=== PATIENT | female | born 1970 | race Caucasian/White ===

== ENCOUNTER 2018-11-15 09:33 | Emergency (ER) | payer OTHER ==
--- NOTE | 2018-11-16 07:37 | UC ---
Course/Dx - Diagnoses Provider Diagnoses: Patient left without being seen Discharge - Sign-Out/Discharge Documenting (check all that apply): Post-Discharge Follow Up All imaging exams completed and their final reports reviewed: No Studies - Discharge Plan Condition: Stable Disposition: LEFT WITHOUT BEING SEEN Referrals: Lloyd Cortez MD [Primary Care Provider] - - Billing Disposition and Condition Condition: STABLE Disposition: Left Without Being Seen
== END 2018-11-15 10:27 | disposition left against medical advice (07) ==
LOC: UCEAST 09:33
DX: Z53.21 Procedure and treatment not carried out due to patient leaving prior to being seen by health care provider (principal)

== ENCOUNTER 2018-11-22 07:55 | Emergency (ER) | payer OTHER ==
[2018-11-22 08:06] VITALS: BP 120/69
--- NOTE | 2018-11-22 08:28 | UC ---
Respiratory Complaint HPI - HPI Summary HPI Summary: 1 WEEK OF SINUS PRESSURE, NASAL CONGESTION AND MILD COUGH. HAD FEVER INITIALLY BUT NONE NOW. THOUGHT SHE WAS GETTING BETTER BUT THEN YESTERDAY STARTED FEELING WORSE AGAIN. DEVELOPED HEADACHE AND SOME MILD PHOTOPHOBIA. DOES HAVE A HISTORY OF MIGRAINES BUT STATES THIS FEELS SLIGHTLY DIFFERENT. SHE BELIEVES IT IS MORE RELATED TO HER SINUSES. - History of Current Complaint Chief Complaint: [email or web address] Stated Complaint: HEADACHE SINUS ISSUE Time Seen by Provider: 11/22/18 08:15 Hx Obtained From: Patient Onset/Duration: Gradual Onset, Lasting Days, Still Present Timing: Constant Severity Initially: Moderate Severity Currently: Moderate Pain Intensity: 9 Pain Scale Used: 0-10 Numeric Character: Cough: Nonproductive Aggravating Factors: Nothing Alleviating Factors: Nothing Associated Signs And Symptoms: Positive: Fever, Chills, Nasal Congestion, Sinus Discomfort - Allergies/Home Medications Allergies/Adverse Reactions: Allergies Allergy/AdvReac Type Severity Reaction Status Date / Time No Known Allergies Allergy Verified 02/04/15 10:23 Home Medications: Home Medications Acetaminophen [Tylenol] 650 mg PO ONCE PRN 11/22/18 [History Confirmed 11/22/18] Diphenhydra/Phenyleph/Acetamin [Cold & Flu Relief Multi-Sym Lq] 1 dose PO ONCE PRN 11/22/18 [History Confirmed 11/22/18] Ibuprofen 800 mg PO ONCE PRN 11/22/18 [History Confirmed 11/22/18] PMH/Surg Hx/FS Hx/Imm Hx Endocrine History: Hypothyroidism Neurological History: Migraine - Surgical History Surgical History: Yes Surgery Procedure, Year, and Place: hysterectomy - Family History Known Family History: Positive: Non-Contributory - Social History Alcohol Use: Occasionally Substance Use Type: None Smoking Status (MU): Former Smoker Type: Cigarettes Amount Used/How Often: off and on, some days none, some days a few Have You Smoked in the Last Year: Yes Review of Systems All Other Systems Reviewed And Are Negative: Yes Constitutional: Positive: Fever, Chills, Fatigue Eyes: Positive: Photophobia ENT: Positive: Nasal Discharge, Sinus Congestion, Sinus Pain/Tenderness Respiratory: Positive: Cough Cardiovascular: Positive: Negative Gastrointestinal: Positive: Nausea Neurological: Positive: Headache Physical Exam Triage Information Reviewed: Yes Appearance: Well-Nourished, Pain Distress - MILD Vital Signs: Initial Vital Signs Temp 98.7 F 11/22/18 08:02 Pulse 55 11/22/18 08:02 Resp 18 11/22/18 08:02 BP 120/69 11/22/18 08:02 Pulse Ox 100 11/22/18 08:02 Vital Signs Reviewed: Yes Eyes: Positive: Conjunctiva Clear ENT: Positive: Hearing grossly normal, Pharynx normal, TMs normal Neck: Positive: Supple, Nontender, No Lymphadenopathy Respiratory Exam: Normal Cardiovascular Exam: Normal Abdomen Description: Positive: Soft Musculoskeletal: Positive: No Edema Neurological: Positive: Alert Psychological: Positive: Age Appropriate Behavior Skin: Negative: Rashes Respiratory Course/Dx - Course Course Of Treatment: DISCUSSED WITH PATIENT POSSIBILITY THAT HEADACHE IS UNRELATED TO HER SINUS/ RESPIRATORY INFECTION. PATIENT STATES THAT SHE BELIEVES HER HEADACHE IS SINUS RELATED AND WOULD LIKE TO TRY TREATMENT FOR THAT BEFORE ANY TARGETED HEADACHE THERAPY. ADVISED TO FOLLOW-UP IF SHE IS NOT IMPROVING AFTER ANTIBIOTIC TX. - Differential Dx/Diagnosis Provider Diagnosis: Sinusitis Discharge - Sign-Out/Discharge Documenting (check all that apply): Patient Departure All imaging exams completed and their final reports reviewed: No Studies - Discharge Plan Condition: Stable Disposition: HOME Prescriptions: Amoxicillin/Clavulanate TAB* [Augmentin TAB 875*] 875 mg PO BID #20 tab Patient Education Materials: Sinusitis (ED) Referrals: Lloyd Cortez MD [Primary Care Provider] - If Needed Additional Instructions: TAKE THE ANTIBIOTIC FOR THE FULL 10 DAYS TO COVER FOR SINUSITIS. REST, HYDRATE , OTC MEDS NEEDED FOR HEADACHE AND DISCOMFORT. SEEK FOLLOW-UP HERE OR WITH YOUR PCP IF YOU'RE NOT IMPROVING EXPECTED. - Billing Disposition and Condition Condition: STABLE Disposition: Home
== END 2018-11-22 08:41 | disposition home or self-care (01) ==
LOC: UCEAST 07:55
DX: J32.9 Chronic sinusitis, unspecified (principal); R68.83 Chills (without fever); R11.0 Nausea; Z87.891 Personal history of nicotine dependence
CPT/HCPCS: 99212; G0463